=== PATIENT | female | born 1980 | race Caucasian/White ===

== ENCOUNTER 2019-12-05 09:21 | Outpatient (CLI) | payer OTHER ==
[2019-12-05 09:58] LABS: BASOPHILS # (AUTO) 0.1 10^3/uL (0.0-0.1); EOSINOPHILS # (AUTO) 0.2 10^3/uL (0.0-0.7); EOSINOPHILS % (AUTO) 3.1 %; HGB - HEMOGLOBIN 13.9 g/dL (12.0-16.0); LYMPHOCYTES # (AUTO) 1.6 10^3/uL (1.5-3.5); LYMPHOCYTES % (AUTO) 27.3 %; MEAN CORPUSCULAR HEMOGLOBIN 29.8 pg (27.0-31.0); MEAN CORPUSCULAR HGB CONC 32.7 g/dL (32.0-36.0); MEAN CORPUSCULAR VOLUME 91.2 fL (81.0-99.0); MEAN PLATELET VOLUME 8.3 fL (7.9-10.8); MONOCYTES # (AUTO) 0.6 10^3/uL (0.0-1.0); NEUTROPHILS # (AUTO) 3.3 10^3/uL (1.5-6.6); NEUTROPHILS % (AUTO) 58.4 %; PLT - PLATELET COUNT 379 10^3/uL (130-450); RED BLOOD COUNT 4.66 10^6/uL (4.20-5.40); RED CELL DISTRIBUTION WIDTH 12.6 % (12.0-15.0); WHITE BLOOD COUNT 5.7 x10^3/uL (4.8-10.8)
[2019-12-05 10:05] LABS: ALBUMIN 4.3 g/dL (3.2-5.5); ALBUMIN/GLOBULIN RATIO 1.3 (1.0-2.2); BILIRUBIN,TOTAL 1.8 mg/dL (0.2-1.0); CALCIUM 9.3 mg/dL (8.5-10.3); CREATININE 0.8 mg/dL (0.4-1.0); TOTAL PROTEIN 7.5 g/dL (6.7-8.2)
[2019-12-05 10:26] LABS: THYROID STIMULATING HORMONE 1.52 uIU/mL (0.34-5.60)
[2019-12-05 10:30] LABS: FREE T4 (FREE THYROXINE) 1.04 ng/dL (0.58-1.64)
[2019-12-05 10:54] LABS: FOLLICLE STIMULATING HORMONE 8.86 mIU/mL
[2019-12-05 10:55] LABS: LUTEINIZING HORMONE 3.57 mIU/mL
== END 2019-12-05 09:22 | disposition home or self-care (01) ==
LOC: LAB 09:21
PROVIDERS: ATTEND Naturopath
DX: E34.9 Endocrine disorder, unspecified (principal); Z78.9 Other specified health status
CPT/HCPCS: 36415; 80053; 82670; 83001; 83002; 84144; 84403; 84439; 84443; 85025

== ENCOUNTER 2020-01-09 08:00 | Outpatient (CLI) | payer OTHER | END 2020-01-09 23:59 | disposition home or self-care (01) | LOC: LAB.R 08:00 | PROVIDERS: ATTEND Naturopath | DX: K31.84 Gastroparesis (principal); K58.0 Irritable bowel syndrome with diarrhea; R68.81 Early satiety | CPT/HCPCS: 81599; 83993 ==

== ENCOUNTER 2020-01-09 09:00 | Outpatient (CLI) | payer OTHER ==
[2020-01-09 10:07] LABS: THYROID STIMULATING HORMONE 1.04 uIU/mL (0.34-5.60)
[2020-01-09 10:09] LABS: FREE T3 3.71 pg/mL (2.5-3.9); FREE T4 (FREE THYROXINE) 1.1 ng/dL (0.58-1.64)
== END 2020-01-09 09:01 | disposition home or self-care (01) ==
LOC: LAB 09:00
PROVIDERS: ATTEND Naturopath
DX: D35.2 Benign neoplasm of pituitary gland (principal); E34.9 Endocrine disorder, unspecified; K31.84 Gastroparesis; R94.7 Abnormal results of other endocrine function studies
CPT/HCPCS: 36415; 82627; 84146; 84439; 84443; 84481

== ENCOUNTER 2020-03-26 08:00 | Outpatient (CLI) | payer OTHER | END 2020-03-26 23:59 | disposition home or self-care (01) | LOC: LAB.R 08:00 | PROVIDERS: ATTEND Naturopath | DX: R63.5 Abnormal weight gain (principal); R94.7 Abnormal results of other endocrine function studies | CPT/HCPCS: 81599; 82530 ==

== ENCOUNTER 2020-05-22 17:58 | Outpatient (CLI) | payer OTHER ==
--- NOTE | 2020-05-23 08:14 | Ultrasound Report ---
PROCEDURE: Pelvic w/Transvaginal INDICATIONS: PELVIC AND PERINEAL PAIN TECHNIQUE: Real-time scanning was performed of the pelvic organs, with image documentation. Additional endovagi nal scanning was necessary due to incomplete visualization of the adnexal and endometrial structures by transabdominal scanning. COMPARISON: None. FINDINGS: A trace amount of fluid can be seen within the left adnexal region, which may be within physiologic l imits. Uterus: Uterus is normal in size at 7.1 x 2.6 x 4.5 cm. Within the fundal endometrium, there is a cy stic focus that measures 8 x 8 x 8 mm, without abnormal vascularity. Minimal echogenic material can b e seen within this cystic lesion along the left lateral wall. No pole or yolk sac can be seen w ithin this fundal endometrial cyst. The endometrium measures 4-5 mm in combined thickness. Essure coils are seen on both sides. Ovaries: The right ovary measures 2.5 x 1 x 1.3 cm and the left ovary measures 3.1 x 2.4 x 1.9 cm. A nd demonstrates a mildly complex cyst that measures up to 1.4 cm. No significant ovarian abnormalitie s are seen. There are less than 12 follicles seen on each side. No adnexal masses are seen. IMPRESSION: There is an 8 mm complex cystic focus within the fundal endometrium. The clinical significance of thi s is uncertain, yet this is simply represent a small month of blood or a benign fluid collection. How ever, please consider early versus a blighted ovum. Essure coils are seen on both sides and so intrauterine are considered to be unlikely. Ectopic with a pseudogestational sac is possible, yet considered to be less likely. Close clinical follow-up with serial beta hCG measurements and serial ultrasound would be recommended , as clinically appropriate. There is a likely hemorrhagic cyst seen of the left ovary measuring 14 mm. If clinically appropriate , please consider a short-term follow-up ultrasound in 6 weeks to ensure resolution/improvement. Reviewed by: Donell Aguilar MD on 05/23/2020 7:13 AM [facility] Approved by: Donell Aguilar MD on 05/23/2020 7:13 AM [facility] Station ID: [id number]
== END 2020-05-22 17:59 | disposition home or self-care (01) ==
LOC: DI 17:58
PROVIDERS: ATTEND Naturopath
DX: R10.2 Pelvic and perineal pain (principal); N85.8 Other specified noninflammatory disorders of uterus

== ENCOUNTER 2020-11-22 07:41 | Outpatient (CLI) | payer OTHER ==
[2020-11-22 08:39] LABS: ALBUMIN 4.2 g/dL (3.2-5.5); ALBUMIN/GLOBULIN RATIO 1.3 (1.0-2.2); ALKALINE PHOSPHATASE 40 IU/L (42-121); ALT ALANINE AMINOTRANSFERASE 21 IU/L (10-60); AST ASPARTATE AMINOTRANSFERASE 19 IU/L (10-42); BUN - BLOOD UREA NITROGEN 19 mg/dL (6-20); CALCIUM 8.9 mg/dL (8.5-10.3); CARBON DIOXIDE - CO2 28 mmol/L (21-32); CHLORIDE 101 mmol/L (101-111); CHOL/HDL RATIO 3.5 (<4.4); CHOLESTEROL 194 mg/dL; CREATININE 0.7 mg/dL (0.4-1.0); GFR - MDRD 93 (>89); GLUCOSE 103 mg/dL (70-100); HDL CHOLESTEROL 56 mg/dL; LDL CHOLESTEROL,CALCULATED 129 mg/dL; LDL/HDL RATIO 2.3 (<4.4); POTASSIUM 4.4 mmol/L (3.5-5.0); SODIUM 136 mmol/L (135-145); TOTAL PROTEIN 7.4 g/dL (6.7-8.2); TRIGLYCERIDES 46 mg/dL; VLDL CHOLESTEROL 9 mg/dL
[2020-11-22 08:57] LABS: PROLACTIN 14.31 ng/mL
[2020-11-22 09:20] LABS: FOLLICLE STIMULATING HORMONE 5.17 mIU/mL; LUTEINIZING HORMONE 3.05 mIU/mL
[2020-11-23 06:52] LABS: ESTRADIOL 101 pg/mL; PROGESTERONE 0.7 ng/mL
[2020-11-24 10:27] LABS: DHEA SULFATE 226 mcg/dL (23-266)
[2020-11-24 17:51] LABS: CYCLIC CITRULL PEPTIDE CCP IGG <16 UNITS
== END 2020-11-22 07:42 | disposition home or self-care (01) ==
LOC: LAB 07:41
PROVIDERS: ATTEND Naturopath
DX: E16.2 Hypoglycemia, unspecified (principal); R68.82 Decreased libido; R94.7 Abnormal results of other endocrine function studies
CPT/HCPCS: 36415; 80053; 80061; 81599; 82088; 82533; 82627; 82670; 83001; 83002; 83525; 83721; 84144; 84146; 84403; 86200; 86769

== ENCOUNTER 2020-12-16 12:11 | Outpatient (CLI) | payer OTHER | END 2020-12-16 12:12 | disposition home or self-care (01) | LOC: LAB 12:11 | PROVIDERS: ATTEND Naturopath | DX: R68.82 Decreased libido (principal); R94.7 Abnormal results of other endocrine function studies | CPT/HCPCS: 81599; 84143; 84681; 86337 ==

== ENCOUNTER 2021-05-12 08:28 | Outpatient (CLI) | payer OTHER ==
[2021-05-12 08:50] LABS: HCT - HEMATOCRIT 43.8 % (37.0-47.0); HGB - HEMOGLOBIN 14.4 g/dL (12.0-16.0); MEAN CORPUSCULAR HEMOGLOBIN 29.9 pg (27.0-31.0); MEAN CORPUSCULAR HGB CONC 32.9 g/dL (32.0-36.0); MEAN CORPUSCULAR VOLUME 90.9 fL (81.0-99.0); MEAN PLATELET VOLUME 8.2 fL (7.9-10.8); RED BLOOD COUNT 4.82 10^6/uL (4.20-5.40); WHITE BLOOD COUNT 6.3 x10^3/uL (4.8-10.8)
[2021-05-12 09:20] LABS: THYROID STIMULATING HORMONE 1.51 uIU/mL (0.34-5.60)
[2021-05-12 09:25] LABS: PROLACTIN 20.68 ng/mL
[2021-05-12 10:35] LABS: ALBUMIN 4.2 g/dL (3.2-5.5); ALBUMIN/GLOBULIN RATIO 1.3 (1.0-2.2); ALKALINE PHOSPHATASE 36 IU/L (42-121); ALT ALANINE AMINOTRANSFERASE 33 IU/L (10-60); AST ASPARTATE AMINOTRANSFERASE 22 IU/L (10-42); BILIRUBIN,TOTAL 2.3 mg/dL (0.2-1.0); BUN - BLOOD UREA NITROGEN 11 mg/dL (6-20); CALCIUM 9.1 mg/dL (8.5-10.3); CARBON DIOXIDE - CO2 25 mmol/L (21-32); CHLORIDE 100 mmol/L (101-111); CHOL/HDL RATIO 4.1 (<4.4); CHOLESTEROL 197 mg/dL; CREATININE 0.7 mg/dL (0.4-1.0); GFR - MDRD 93 (>89); GLUCOSE 99 mg/dL (70-100); HDL CHOLESTEROL 48 mg/dL; POTASSIUM 4.1 mmol/L (3.5-5.0); SODIUM 134 mmol/L (135-145); TOTAL PROTEIN 7.4 g/dL (6.7-8.2); TRIGLYCERIDES 39 mg/dL
[2021-05-12 17:32] LABS: ESTIMATED AVERAGE GLUCOSE 114 mg/dL (70-100); HEMOGLOBIN A1c% 5.6 % (4.27-6.07)
== END 2021-05-12 08:29 | disposition home or self-care (01) ==
LOC: LAB 08:28
PROVIDERS: ATTEND Obstetrics & Gynecology
DX: Z00.00 Encounter for general adult medical examination without abnormal findings (principal); D35.2 Benign neoplasm of pituitary gland; R53.83 Other fatigue; R53.81 Other malaise; Z13.1 Encounter for screening for diabetes mellitus; Z13.220 Encounter for screening for lipoid disorders; Z13.21 Encounter for screening for nutritional disorder; R63.5 Abnormal weight gain
CPT/HCPCS: 36415; 80053; 80061; 82306; 83036; 83721; 84146; 84443; 85027

== ENCOUNTER 2021-06-07 08:48 | Outpatient (CLI) | payer OTHER ==
[2021-06-07] MEDS ORDERED: GADOBUTROL 10 MMOL/10 ML VIAL ONE (09:04)
--- NOTE | 2021-06-07 10:32 | MRI Report ---
PROCEDURE: Brain W/WO INDICATIONS: PITUITARY ADENOMA CONTRAST: Gadavist 9.1 mL TECHNIQUE: Noncontrast axial T1 spin echo, axial T2 fast spin echo, sagittal and axial FLAIR, coronal T2 fast sp in echo, axial gradient echo, axial diffusion and ADC through the brain. After the administration of contrast, axial and coronal T1 spin echo with fat saturation through the brain. COMPARISON: None. FINDINGS: Image quality: Excellent. CSF spaces: Basal cisterns are patent. No extra-axial fluid collections. Ventricles are normal in size and shape. PITUITARY GLAND: Normal size and appearance of the pituitary gland. No evidence of pituitary mass or other mass in the sellar/suprasellar region. Midline pituitary stalk. Normal position of T1 shortenin g in the neurohypophysis. Brain: No restricted diffusion. No abnormal intracranial susceptibility or enhancement. Midline struc tures normal in appearance. Vascular flow-related signal voids are maintained. No brain parenchymal s ignal abnormality. There Skull and face: Calvarial marrow is normal in signal. Orbits appear normal . Sinuses: Sinuses and mastoids appear clear. IMPRESSION: Normal study. Reviewed by: Farhat Pavon MD on 06/07/2021 10:31 AM [facility] Approved by: Farhat Pavon MD on 06/07/2021 10:31 AM [facility] Station ID: [id number]
[2021-06-08] MEDS ORDERED: GADOBUTROL 10 MMOL/10 ML VIAL IVP ONE (16:16)
== END 2021-06-07 08:49 | disposition home or self-care (01) ==
LOC: DI 08:48
PROVIDERS: ATTEND Obstetrics & Gynecology
DX: D35.2 Benign neoplasm of pituitary gland (principal)
CPT/HCPCS: 70553; A9585

== ENCOUNTER 2021-08-23 11:08 | Day surgery (SDC) | payer OTHER ==
--- NOTE | 2021-08-23 07:12 | HISTORY & PHYSICAL EXAMINATION ---
HPI - History of Present Illness HPI Comment/Other: HPI: Patient presents today for follow bx results. Patient states doing well ...................................................................Rosaura Quezada Software Trainer August 10, 2021 2:32 PM The patient is a 40-year-old G0 here to discuss surgical options for recent high grade dysplasia seen on colposcopy. Patient is a 40-year-old G0 well known to this clinic. She was seen in 2019 for a ASCUS pap positive for high risk HPV. She underwent a colposcopy with ECC that returned normal. She returned for a repeat pap smear on 05/09/21, which was also ASCUS and positive for HPV 16. She reports that she had an abnormal Pap smear years ago that was normal on a repeat Pap smear 6 months later. She has never had a colposcopy and never had any LEEP procedures. Recent colpo had an ECC that showed high grade dysplasia, not otherwise specified. She has never been . She underwent endometrial ablation with Essure placement in 2013. 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 She has no history of sexually transmitted infections. She is sexually active with one male partner of three years although they have been less frequently active in recent times. We recently performed an MRI which showed the adenoma has resolved. She was seen in the last year for a cyst seen in the endometrial canal on us ordered for pain. 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 She does not use tobacco products. She is struggling with weight issues despite following a failry restrictive diet. 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 She would like a hysterectomy. However, she has not yet had a cone procedure to characterize the dysplasia. Allergies: No Known Allergies Medications: TISH THYROID 30 MG ORAL TABLET (THYROID) Take one tablet by mouth once daily; Route: ORAL Problems: Papanicolaou smear of cervix with high grade squamous intraepithelial lesion (HGSIL) (ICD-795.04) (FEG44-R59.613) Preoperative examination (ICD-V72.84) (UWW43-S12.818) HPV (ICD-079.4) (XRT72-X69.7) Screening for diabetes mellitus (ICD-V77.1) (IAB20-C49.1) Preventive health care (ICD-V70.0) (OSW36-K40.00) Screening for vitamin D deficiency (ICD-V77.99) (PIS20-K73.21) Screening for hyperlipidemia (ICD-V77.91) (JSZ36-H03.220) Weight gain (ICD-783.1) (DOB44-B96.5) Fatigue & malaise (ICD-780.79) (MXD76-Y96.83) Pituitary adenoma (ICD-227.3) (LHR19-Y50.2) Endometrial lesion (ICD-621.8) (PSY05-B96.9) Pelvic pain (ICD-625.9) (ICE72-Q65.2) Abnormal cervical Pap ASCUS (atypical squamous cells undetermined significance) (ICD-795.01) (XDF02-X05.610) Vital Signs: Patient Profile: 40 Years Old Female Height: 67 inches Weight: 211.6 pounds BMI: 33.26 Temp: 96.9 degrees F temporal BP sittin / 78 Cuff size: regular Vitals Entered By: Rosaura Quezada Software Trainer (August 10, 2021 2:32 PM) Meds Reviewed: Done Allergies Reviewed: Done Questionnaire Would you like to become in the next year? No Are you currently using contraception? Yes Are you satisfied with your current control? Yes Education provided to patient? Yes What is your current type of control? Female sterilization End Method: Female sterilization Past Medical History: gall bladder disease pituitary adenoma Past Surgical History: Essure 2013 Gallbladder removed FRONT OFFICE ATTENDANT Review of Systems ROS Comments: As per HPI, otherwise remaining systems are negative. Physical Constitutional: GEN: NAD HEAD: NCAT EYES: No scleral icterus or conjunctival injection CV: RRR RESP: CTAB, normal effort ABD: S&NT/ND PSYCH: appropriate affect NEURO: alert and oriented, normal gait and coordination EXT: WWP Impression & Recommendations: Problem # 1: Preoperative examination (ICD-V72.84) (CKI74-G06.818) We had an extensive discussion regarding her surgical options. We agreed to proceed with LEEP procedure with a hysteroscopy D&C based on history of endometrial lesion. She would like to proceed with hysterectomy once the cone procedure is complete. Reviewed risks/benefits/alternatives to hysteroscopy/polpectomy and LEEP procedure Risks include, but are not limited to, bleeding, infection, damage to neatby tissue and organs. On average, expected EBL is minimal. In the event of an unanticipated blood loss, patient is willing to undergo transfusion. Risks of blood transfusion include infection as well as transfusion reaction Risk of HIV 1/2million nationwide Risk of Hepatitis 1/1 million Risks of transfusion reaction and mgt reviewed Infection risk low given that no incisions bee be made and we will be using physiologic orifices. Will provide IV abx in the event of uterine perforation. Damage to nearby tissue and organs was reviewed with emphasis on uterine perforation and management, which can include surgical intervention based on bleeding risk. Reviewed management of complications and efforts to avoid such outcomes but reviewed that they may occur despite our best efforts. Patient agreed to the aforementioned procedure and written informed consent was obtained. Other Orders: PRE OP -[id number] ([id number]) Gender ID Identifies as Female Height: 67 (07/21/2021 8:28:01 AM) Weight: 211.6 Gonnorhea: negative (03/13/2020 10:23:56 AM) Chlamydia: negative (03/13/2020 10:23:56 AM) Control Plan(per PISQ): Female sterilization Gonnorrhea: negative (03/13/2020 10:23:56 AM) Chlamydia: negative (03/13/2020 10:23:56 AM) Last Pap: ASCUS (05/09/2021 1:33:21 PM) History of no Last Colpo: Normal colposcopic findings (07/21/2021 8:28:01 AM) PMH/PSH - Past Medical History Cardiovascular: positive: None Respiratory: positive: None Endocrine/Autoimmune: positive: None GI: positive: None : positive: None Psych: positive: None Musculoskeletal: positive: None Derm: positive: None MRSA Hx?: No - Past Surgical History General: positive: Cholecystectomy /FRONT OFFICE ATTENDANT: positive: Other HEENT: positive: Tonsil/Adenoidectomy Meds/Allgy - Home Medications Home Medications: Ambulatory Orders Medication Instructions Recorded Confirmed Semaglutide [Rybelsus] 3 mg PO DAILY 08/16/21 08/16/21
[~2021-08-23 11:08] MED LIST: ACETAMINOPHEN 1,000 MG/100 ML 100 ML IV ONE; CELECOXIB 100 MG CAPSULE PO ONE; GABAPENTIN 400 MG CAPSULE ONE
[2021-08-23 11:28] LABS: HCG UR QUAL NEGATIVE
[2021-08-23] MEDS ORDERED: LACTATED RINGERS 1,000 ML IV ONE ×2 (11:42→15:34)
--- NOTE | 2021-08-23 12:13 | ANESTHESIA ---
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 - Procedure Myosure hysteroscopy, D&C Vital Signs: Temp Pulse Resp BP Pulse Ox 36.8 C 70 18 120/78 100 08/23/21 11:33 08/23/21 11:33 08/23/21 11:33 08/23/21 11:33 08/23/21 11:33 Height: 5 ft 7 in Weight (kg): 94.3 kg Body Mass Index: 32.5 BMI Classification: Obese - NPO >8 hours - Is Patient ?: No - Lab Results Lab results reviewed: Yes Home Medications and Allergies Home Medications: Ambulatory Orders Semaglutide [Rybelsus] 3 mg PO DAILY 08/16/21 Multivitamin 1 each PO DAILY 08/23/21 Semaglutide [Rybelsus] 3 mg PO DAILY 08/16/21 Multivitamin 1 each PO DAILY 08/23/21 Anes History & Medical History - Anesthetic History Anesthesia Complications: reports: No previous complications Family history of Anesthesia Complications: Denies Family history of Malignant Hyperthermia: Denies - Medical History Cardiovascular: reports: None Pulmonary: reports: None Gastrointestinal: reports: None Urinary: reports: None Musculoskeletal: reports: None Endocrine/Autoimmune: reports: None Skin: reports: None - Surgical History General: reports: Cholecystectomy Eyes Ears Nose Throat (EENT): reports: Tonsil/Adenoidectomy Gynecologic: reports: Other Exam General: Alert, Oriented x3, Cooperative, No acute distress Dental: WNL Mouth and Teeth Image: 1 - chipped Mouth Openin Fingerbreadth Neck Mobility: Normal Mallampati classification: I Plan Anesthesia Type: General Consent for Procedure(s) Verified and Reviewed: Yes Code Status: Attempt Resuscitation ASA classification: 2-Mild systemic disease Is this case an emergency?: No
[2021-08-23] MEDS ORDERED: ONDANSETRON 4 MG/2 ML VIAL IVP PRN (13:34)
[2021-08-23] MEDS ORDERED: ePHEDrine 50 MG/ML VIAL IVP PRN (13:34)
[2021-08-23] MEDS ORDERED: ATROPINE ABBOJECT 1 MG/10 ML SYRINGE IVP PRN (13:34)
[2021-08-23] MEDS ORDERED: METOCLOPRAMIDE 10 MG/2 ML VIAL IVP PRN (13:34)
[2021-08-23] MEDS ORDERED: fentaNYL 100 MCG/2 ML VIAL IVP PRN (13:34)
[2021-08-23] MEDS ORDERED: MORPHINE 2 MG/ML CARPUJECT IVP PRN (13:34)
[2021-08-23] MEDS ORDERED: NALOXONE 0.4 MG/ML VIAL IVP PRN (13:34)
[2021-08-23] MEDS ORDERED: HYDROmorphone 0.5 MG/0.5 ML SYRINGE IVP PRN (13:34)
[2021-08-23] MEDS ORDERED: POTASSIUM IODIDE/IODINE 14 ML SOLUTION ONE (13:50)
[2021-08-23] MEDS ORDERED: MIDAZOLAM 2 MG/2 ML VIAL ONE ×2 (13:53→14:12)
[2021-08-23] MEDS ORDERED: BUPIVACAINE 0.25% PF 10 ML VIAL ONE (13:53)
[2021-08-23] MEDS ORDERED: LIDOCAINE MPF 2%-EPI 1:200000 20 ML VIAL ONE (13:53)
[2021-08-23] MEDS ORDERED: DEXAMETHASONE 4 MG/ML VIAL ONE ×2 (13:54→14:12)
[2021-08-23] MEDS ORDERED: LACTATED RINGERS 1,000 ML IV SCH (14:00)
[2021-08-23] MEDS ORDERED: PROPOFOL 200 MG/20 ML VIAL IVP ONE (14:12)
[2021-08-23] MEDS ORDERED: FERRIC SUBSULFATE 8 ML SOLUTION (FOR OR) TOP ONE (14:23)
[2021-08-23] MEDS ORDERED: POTASSIUM IODIDE/IODINE 14 ML SOLUTION TOP ONE (14:23)
[2021-08-23] MEDS ORDERED: LIDOCAINE 2%-EPI 1:100000 20 ML MDV SUBQ ONE (14:23)
[2021-08-23] MEDS ORDERED: BUPIVACAINE 0.25% PF 10 ML VIAL SUBQ ONE ×2 (14:24)
[2021-08-23] MEDS ORDERED: oxyCODONE 5 MG TABLET PO PRN (15:42)
--- NOTE | 2021-08-23 15:48 | OPERATIVE REPORT ---
Operative Report - General Procedure Date: 08/23/21 Planned Procedure: LEEP and hysteroscopy D&C Pre-Op Diagnosis: Advanced cervical dysplasia and endometrial cyst Procedure Performed: LEEP and hysteroscopy D&C Post Op Diagnosis: Same - Procedure Note Primary Surgeon: Hodan Mccabe MD Anesthesia Provider: Beata Reynoso CRNA Anesthesia Technique: General ET tube Pathology: Cervical LEEP biopsy in 4 specimens: 1) ectocervix 2) anterior endocervix 3) posterior endocervix 4) Endocervical curettage D&C 1) Endometrial curettings IV Fluids (mL): 650 Estimated Blood Loss (mL): 10 Urine Output (mL): 120 Indications: The patient is a 40-year-old G0 here to discuss surgical options for recent high grade dysplasia seen on colposcopy. Patient is a 40-year-old G0 well known to this clinic. She was seen in 2019 for a ASCUS pap positive for high risk HPV. She underwent a colposcopy with ECC that returned normal. She returned for a repeat pap smear on 05/09/21, which was also ASCUS and positive for HPV 16. She reports that she had an abnormal Pap smear years ago that was normal on a repeat Pap smear 6 months later. She has never had a colposcopy and never had any LEEP procedures. Recent colpo had an ECC that showed high grade dysplasia, not otherwise specified. She has never been . She underwent endometrial ablation with Essure placement in 2013. 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 She has no history of sexually transmitted infections. She is sexually active with one male partner of three years although they have been less frequently active in recent times. We recently performed an MRI which showed the adenoma has resolved. She was seen in the last year for a cyst seen in the endometrial canal on us ordered for pain. 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 She would like a hysterectomy. However, she has not yet had a cone procedure to characterize the dysplasia. Findings: Nulliparous cervix with minimal AWE changes and poor uptake of Lugols centered around the cervical ofs. The uterine cavity was heavily scarred 2/2 prior endometrial ablation, limiting distention of the cavity. Complications: None - Other Other Information/Narrative: Risks benefits and alternatives to the procedure were reviewed. Consent was again confirmed. Patient was taken to the operating room where she underwent general anesthesia. Exam under anesthesia was performed. She was positioned in dorsolithotomy position with legs resting in yellowfin stirrups. She was prepped and draped in the usual sterile fashion. Preoperative antibiotics were not indicated. Preoperative checklist was performed. A grounding pad was placed on the patients right anterior thigh. A urine test was negative. A time out was performed, correctly identifying the patient and the LEEP procedure and planned hysteroscopy D&C. At this time, a bivalved nonconductive speculum was placed in the vagina. A bri coated sidewall retractor was also placed in the vagina. A solution of 3% acetic acid was applied to the cervix. AWE changes were noted as above. Lugol's solution was painted along the entire cervix and vaginal wall. Areas of non- uptake were noted to be around the entire squamocolumnarjunction. Approximately 20 mL of 2% lidocaine with epinephrine was injected at 4:00 and 8:00 at the portio of the cervix and also circumferentially along the cervix. A 15x10 mm loop electrode was used to remove the the ectocervix in one portion. The specimen was excised in one pieces and sent to pathology. smaller loop electrode was used to obtain a top hat for excision of the endocervix, also taken in anterior and posterior samples and sent separately in 2 specimens. An endocervical curettage was performed and specimen and sent to pathology. The bed of the excised cervical tissue along the cervix was cauterized using the rollerball. A generous plug of Monsels solution was placed on the cervical bed. Good hemostasis was noted. The coated speculum was removed and was replaced with a standard sterile speculum. Speculum was placed in the vagina and the cervix was visualized. Single-tooth tenaculum was placed at the anterior cervical lip. The cervical os was serially dilated with Hegar dilators to accommodate the caliber of the diagnostic hysteroscope. Uterus sounded to 6.5 cm. The hysteroscope was inserted and findings were noted as above. Hysteroscope was removed. Sharp curettage D&C was performed with sharp curettage. All instruments were removed from the uterus. Tenaculum was removed. Tenaculum sites were noted to be hemostatic. All instruments were removed from the vagina. Procedure was well-tolerated and without complication. Sponge and intrument counts were correct. She was extubated without complication and brought to the PACU for recovery. Fluid deficit: 140 cc NS
--- NOTE | 2021-08-23 16:32 | ANESTHESIA POST OP EVALUATION ---
Anesthesia Post Eval - Post Anesthesia Eval Vitals: Last Vital Signs Temp 37.0 C 08/23/21 16:06 Pulse 73 08/23/21 16:06 Resp 16 08/23/21 16:06 BP 129/81 H 08/23/21 16:06 Pulse Ox 100 08/23/21 16:06 CV Function Including HR & BP: Stable Pain Control: Satisfactory Nausea & Vomiting: Negative Mental Status: Baseline Respiratory Status: Airway Patent Hydration Status: Satisfactory Anesthesia Complications: None
[2021-08-23 17:01] VITALS: BP 116/74
== END 2021-08-23 11:09 | disposition home or self-care (01) ==
LOC: SDS 11:08
PROVIDERS: ATTEND Obstetrics & Gynecology
PROC: 0UJD8ZZ Inspection of Uterus and Cervix, Via Natural or Artificial Opening Endoscopic (ICD-10-PCS; 2021-08-23)
PROC: 0UBC7ZX Excision of Cervix, Via Natural or Artificial Opening, Diagnostic (ICD-10-PCS; principal; 2021-08-23 12:15)
PROC: 0UDB7ZX Extraction of Endometrium, Via Natural or Artificial Opening, Diagnostic (ICD-10-PCS; 2021-08-23 12:15)
DX: N87.1 Moderate cervical dysplasia (principal); E66.9 Obesity, unspecified; Z32.02 Encounter for pregnancy test, result negative; Z68.33 Body mass index [BMI] 33.0-33.9, adult
CPT/HCPCS: 57460; 58558; 81025; A9270; J0131; J7120

== ENCOUNTER 2021-10-06 08:00 | Outpatient (CLI) | payer OTHER | END 2021-10-06 23:59 | disposition home or self-care (01) | LOC: LAB 08:00 | PROVIDERS: ATTEND Obstetrics & Gynecology | DX: R19.8 Other specified symptoms and signs involving the digestive system and abdomen (principal) | CPT/HCPCS: 87070; 87077; 87181; 87205 ==

== ENCOUNTER 2022-01-31 14:36 | Outpatient (CLI) | payer OTHER ==
--- NOTE | 2022-02-01 09:08 | Mammography Report ---
BILATERAL DIGITAL SCREENING MAMMOGRAM 3D/2D: 01/31/2022 CLINICAL: Routine screening. Baseline exam. No prior exams were available for comparison. Both breasts are heterogeneously dense, which may obscure small masses (category c / 51-75% glandula r tissue). No significant masses, calcifications, or other findings are seen in either breast. IMPRESSION: NEGATIVE There is no mammographic evidence of malignancy. A 1 year screening mammogram is recommended. Based on the Tyrer Cuzick model (a risk assessment model) the patients lifetime risk is 14.4% and he r 10 year risk is 1.8%. According to the ACR, ACS, and NCCN guidelines, an annual breast MRI exam ngozi ng with mammogram is recommended if the patients lifetime risk is 20% or greater. This exam was interpreted at Station ID: [id number]. NOTE: For mammograms, a report in lay terms will be sent to the patient. Approximately 15% of breast malignancies will not be visualized mammographically. In the management of a palpable breast mass, a negative mammogram must not discourage biopsy of a clinically suspicious lesion. Electronically Signed By: Jerome cedillo/cony:02/01/2022 07:26:39 ACR BI-RADS Category 1: Negative 3341F PARENCHYMAL PATTERN: (D) - The breast(s) demonstrate(s) heterogeneously dense fibroglandular parrodney meyers. BI-RADS CATEGORY: (1) - 1 RECOMMENDATION: (ANNUAL) - Recommend routine annual screening mammography. [id number] 1 year screening LATERALITY: (B)
== END 2022-01-31 14:37 | disposition home or self-care (01) ==
LOC: DI 14:36
PROVIDERS: ATTEND Obstetrics & Gynecology
DX: Z12.31 Encounter for screening mammogram for malignant neoplasm of breast (principal)